=== PATIENT | male | born 1990 | race Caucasian/White ===

== ENCOUNTER 2018-06-20 13:15 | Emergency (ER) | payer OTHER ==
[2018-06-20 14:51] LABS: Hemoglobin 15.4 g/dL (14.0-18.0); Mean Corpuscular HGB CONC 33.7 g/dL (32.0-36.0); Mean Corpuscular Hemoglobin 28.8 pg (27.0-31.0); Mean Corpuscular Volume 85.5 fL (78.0-98.0); Mean Platelet Volume 7.6 fL (7.4-10.4); Platelet Count 269 thou/uL (130-400); RBC Distribution Width 11.4 % (11.5-14.5); Red Blood Cell (RBC) Count 5.34 mill/uL (4.70-6.10)
[2018-06-20 15:07] LABS: Band 8 % (5-11); Eosinophils 1 % (0-10); Lymphocytes 24 % (21-51); MDiff Complete? YES; Monocytes 8 % (0-10); Neutrophil 54 % (42-75); Platelet Morphology Comment Appears Adequate; RBC Morphology Normal; Reactive Lymphocytes 4 % (0-10)
[2018-06-20 15:13] LABS: ALT (SGPT) 55 U/L (8-55); AST (SGOT) 47 U/L (5-34); Albumin 4.8 g/dL (3.5-5.0); Alkaline Phosphatase 94 U/L (40-150); Anion Gap 11 mmol/L (10-20); BUN (Urea Nitrogen) 14 mg/dL (8.9-20.6); Bilirubin, Total 0.5 mg/dL (0.2-1.2); Calc. Creatinine Clearance 0 mL/min (70-130); Carbon Dioxide 26 mmol/L (22-29); Chloride 105 mmol/L (98-107); Estimated GFR-MDRD Greater than 90; Globulin 3.5 g/dL (2.4-3.5); Glucose 81 mg/dL (70-105); Lipase 9 U/L (8-78); Potassium 4.2 mmol/L (3.5-5.1); Protein, Total 8.3 g/dL (6.0-8.3); Sodium 138 mmol/L (136-145)
--- NOTE | 2018-06-20 15:24 | ULT ---
SONOGRAM RIGHT UPPER QUADRANT: Date: 06/20/18 HISTORY: Right upper quadrant pain. FINDINGS: Multiple echogenic shadowing stones are present within the dependent portion of the gallbladder lumen . No gallbladder wall thickening or pericholecystic fluid. Nondistention results in gallbladder wall upper limits of normal in thickness. Common duct is 0.4 cm. Liver unremarkable without focal mass or intrahepatic biliary dilatation. No free fluid. IMPRESSION: Cholelithiasis. No evidence of acute biliary obstruction. POS: GEOFFH
== END 2018-06-20 17:39 | disposition home or self-care (01) ==
LOC: ERS 13:15
DX: K80.70 Calculus of gallbladder and bile duct without cholecystitis without obstruction (principal)
CPT/HCPCS: 76705; 80053; 83690; 85025

== ENCOUNTER 2018-07-16 07:41 | Day surgery (SDC) | payer OTHER ==
--- NOTE | 2018-07-14 13:04 | HP ---
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 Ultrasound on 06/20/2018 reveals gallstones. Bile duct 4 mm. LABORATORY DATA: 06/20/2018, CBC and comprehensive metabolic profile normal. ALLERGIES: NONE. SOCIAL HISTORY: Tobacco, none. Alcohol, none. He has 2 children. He works as a community nurse. MEDICATIONS: None. PAST SURGICAL HISTORY: Tonsillectomy, vasectomy. PAST MEDICAL HISTORY: Noncontributory. REVIEW OF SYSTEMS: Noncontributory. PHYSICAL EXAMINATION: VITAL SIGNS: Blood pressure 131/62, pulse 69, temperature 99 degrees, weight 209 pounds. HEAD, EARS, EYES, NOSE, AND THROAT: Unremarkable. Sclerae nonicteric. LUNGS: Clear to auscultation. CARDIAC: Rhythm without murmur or gallop. ABDOMEN: Soft and nontender. EXTREMITIES: Unremarkable. SKIN: Nonjaundiced. NEUROLOGIC: Intact. No focal deficit. ASSESSMENT: Symptomatic gallstones. PLAN: Laparoscopic video cholecystectomy. He has had symptoms for the past 6 months. He understands risks of infection, bleeding, visceral, and biliary injury, and consents. Questions answered. Job ID: [id number]
[2018-07-15 11:28] VITALS: BMI 31.3
[2018-07-16] MEDS ORDERED: Ketorolac Tromethamine 30 MG/ML VIAL ONE (07:58)
[2018-07-16] MEDS ORDERED: Bupivacaine HCl 0.5%/Epinephrine 1:200,000/PF 30 ml Vial ONE (08:03)
[2018-07-16] MEDS ORDERED: Midazolam HCl 2 mg/2 ml Vial ONE (08:40)
[2018-07-16] MEDS ORDERED: Fentanyl 100 MCG/2 ML VIAL ONE (08:55)
[2018-07-16] MEDS ORDERED: Meperidine HCl/PF 25 MG/ML VIAL ONE (10:18)
--- NOTE | 2018-07-16 10:37 | OP ---
DATE OF PROCEDURE: 07/16/2018 PREOPERATIVE DIAGNOSES: Chronic cholecystitis and cholelithiasis. POSTOPERATIVE DIAGNOSES: Chronic cholecystitis and cholelithiasis. PROCEDURE PERFORMED: Laparoscopic video cholecystectomy. ANESTHESIA: General, local 0.5% Marcaine with epinephrine 30 mL. DESCRIPTION OF PROCEDURE: The patient was taken to the operating room, where under general anesthesia, abdomen was clipped of hair, prepared with ChloraPrep and draped in routine fashion. Local anesthetic was infiltrated in the skin and subcutaneous tissue about each port site, total volume used. Infraumbilical incision was made. Pneumoperitoneum to 15 mmHg was obtained with a Veress needle, replaced with a 5 port, laparoscope inserted. Right subxiphoid incision was made and 11 port placed, right subcostal incision was made, midclavicular and anterior axillary line, the 5 port was placed. Liver appeared to be normal. Gallbladder appeared to be normal, had large stones. Fundus of the gallbladder was grasped at the cephalad. Infundibulum was grasped and reflected laterally. Cystic artery and duct dissected free. Critical view obtained. Cystic artery and duct double clipped proximally and divided. Gallbladder dissected free from liver bed obtaining good hemostasis prior to removing the gallbladder and stones. Good hemostasis ensured with the cautery. Irrigant and pneumoperitoneum evacuated. All instruments were removed, and all skin incisions were approximated with interrupted subdermal 4-0 Monocryl and [place] glue was applied. Job ID: [id number]
[2018-07-16] MEDS ORDERED: PHENYLEPHRINE-NS 100 MCG/ML 10 ML SYRINGE ONE (13:38)
[2018-07-16] MEDS ORDERED: Ondansetron PF 4 MG/2 ML Vial ONE (13:38)
[2018-07-16] MEDS ORDERED: PROPOFOL 200 MG/20 ML VIAL ONE (13:38)
[2018-07-16] MEDS ORDERED: Lidocaine 1% PF 5 ML VIAL ONE (13:38)
[2018-07-16] MEDS ORDERED: Glycopyrrolate 0.2 MG/ML 5 ML SYRINGE ONE (13:38)
[2018-07-16] MEDS ORDERED: Rocuronium Bromide 10 MG/ML (10ML VIAL) ONE (13:38)
== END 2018-07-16 12:10 | disposition home or self-care (01) ==
LOC: SDC 07:41
PROVIDERS: ATTEND Specialist
PROC: 0FT44ZZ Resection of Gallbladder, Percutaneous Endoscopic Approach (ICD-10-PCS; principal; 2018-07-16)
DX: K80.10 Calculus of gallbladder with chronic cholecystitis without obstruction (principal)
CPT/HCPCS: 88304; J0131; J0670; J1885; J2001; J2175; J2250; J2405; J2704; J3010

== ENCOUNTER 2021-05-02 10:42 | Outpatient (CLI) | payer OTHER | END 2021-05-02 10:43 | disposition home or self-care (01) | LOC: ULT 10:42 | PROVIDERS: ATTEND Family Medicine Sports Medicine | DX: N50.811 Right testicular pain (principal); I86.1 Scrotal varices | CPT/HCPCS: 76870; 93976 ==